=== PATIENT | male | born 1965 | race Caucasian/White ===

== ENCOUNTER → 2024-09-17 | Outpatient (CLI) | payer OTHER, SELFPAY ==
--- NOTE | 2024-09-16 09:00 | LES_PTH ---
PATIENT: AMARA HERNANDEZ LOC: [facility] U#:[id number] AGE/SX: 59/M ROOM: RE09/17/[address]: Dr. Nikhil Bond MD : 1965 BED: DIS: 09/17/2024 SPEC #: [id number] RECD: 09/16/24 17:12 STATUS: DILCIA ISABELLA #: [id number] MORENO: 09/16/24 09:[address]: Nikhil Bond DEPT: SURGICAL PATHOLOGY RECD BY: Franklyn Gray ENTERED: 09/19/24 09:42 SP TYPE: Lesion OTHR DR: No Primary Care Phys Tissues: A - Skin of back, NOS Procedures: Surgery Specimen Level IV HEADER OPERATION: Excision left back mole PRE-OP DIAGNOSIS: Left back mole TISSUE SUBMITTED: A- Left back lesion MICROSCOPIC DIAGNOSIS A. Back, left, lesion, mole, excision: * Seborrheic keratosis. MICROSCOPIC DESCRIPTION Slides are reviewed. GROSS DESCRIPTION A. Received in formalin labeled with the patient's name and date of . Designated as left back lesion is a 1.0 x 0.7 cm duong skin ellipse, devoid of orientation and excised to a maximum depth of 0.6 cm. Eccentrically on the epidermal surface is a 0.6 x 0.4 cm brown and granular lesion, located <0.1 cm from the peripheral edge. The resection margin is inked orange. Sectioning reveals duong-white fibrotic and focally gritty cut surfaces. Entirely submitted in 2 cassettes, to include the tips in cassette A1. OR 09/19/2024 CPT:11375
--- OUTSIDE RECORDS SUMMARY | 2024-09-17 08:58 | XMS RPT_ITS | CCD ---
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 Tejeda Attending Provider [phone] Allergies Allergy Classification Reported Allergen(s) Allergy Type Date of Onset Reaction(s) Facility (1 source) levoFLOXacin Drug Allergy 5 [facility] Repository (1 source) levoFLOXacin Drug Allergy 5 PT UNSURE OF REACTION [facility] Results Test Name Value Interpretation Reference Range Facil ity Quantiferon TB-Gold+on 03-11 QFT MITOGEN BIRGIT > 10.00 Normal . [facility] Comment on above: Performed By: #### L 3400.8000 #### [facility] [address] [place], [place], [id number] (192) QFT NIL VALUE 0 IU/mL Normal . [facility] Comment on above: Performed By: #### L 3400.8000 #### [facility] [address] [place], [address] QFT TB GOLD+ Comment Normal . [facility] Comment on above: Result Comment: Junaid tiFERON-TB Gold Plus is a qualitative indirect test for M tuberculosis infection (including disease) and is intended for use in conjunction with risk assessment, radiography, and other medical and diagnostic evaluations. The QuantiFERON-TB Gold Plus result is determined by subtracting the Nil value from either TB antigen (Ag) value. The Mitogen tube serves as a control for the test. Performed By: #### L 3400.8000 #### [facility] [address] [place], [address] QFT TB POS CRIT Negative Normal Negative [facility] Comment on above: Result Comment: No r esponse to M tuberculosis antigens detected. Infection with M tuberculosis is unlikely, but high risk individuals should be considered for additional testing (ATS/IDSA/CDC Clinical Practice Guidelines, 2017). The reference range is an Antigen minus Nil result of <0.35 IU/mL. The specimen received for QuantiFERON testing was incubated by the ordering institution. Specific procedures outlined in our Directory of Services and in the package insert for the QuantiFERON Gold (In Tube) test must be followed to enable for proper stimulation of cells for the production of interferon gamma. Chemiluminescence immunoassay methodology Performed at: [facility] [id number] [employer] Fire[employer] Helper: Rubin Brunner PhD, Phone: [phone] Performed By: #### L 3400.8000 #### [facility] [address] [place], [address] QFT TB1+ AG BIRGIT 0 IU/mL Normal . [facility] Comment on above: Performed By: #### L 3400.8000 #### [facility] [address] [place], [address] QFT TB2+ AG BIRGIT 0 IU/mL Normal . [facility] Comment on above: Performed By: #### L 3400.8000 #### [facility] [address] [place], [address] Mumps Antibody,IgGon 18-2 024 MUMPS Ab, IgG 54.6 AU/mL Normal Immune >10.9 [facility] Comment on above: Result Comment: Nega tive <9.0 Equivocal 9.0 - 10.9 Positive >10.9 A positive result generally indicates past exposure to Mumps virus or previous vaccination. Performed By: #### L 3100.3400, L3100.0539, L3400.1750, L509.4015 #### [facility] [address] [place], [place], [address] [facility] EMP Rubeola Titeron 12 RUBEOLA Ab, IgG > 300.0 Normal Immune >16.4 [facility] Comment on above: Result Comment: Nega tive <13.5 Equivocal 13.5 - 16.4 Positive >16.4 Presence of antibodies to Rubeola is presumptive evidence of immunity except when acute infection is suspected. Performed at: [address] [id number] [employer]per: Rubin Brunner PhD, Phone: [phone] Performed By: #### L 3100.3400, L3100.0539, L3400.1750, L509.4015 #### [facility] [address] [place], [place], [address] Hepatitis B Surf AB - EMPon 03-08-2024 HEP B Surf Ab Reactive Normal [facility] Comment on above: Result Comment: Non Reactive: Inconsistent with immunity less than <10 mIU/mL Reactive: Consistent with immunity greater than or equal to 10 mIU/mL Performed By: #### L 3100.3400, L3100.0539, L3400.1750, L509.4015 #### [facility] [address] [place], [place], [address] Rubella IgG [facility] EMPLOYEEon 05-09-2023 Rubella IgG Reactive Normal Nonreactive [facility] Comment on above: Result Comment: Anti body Results Interpretation of Immune Status Non Reactive Presumed Non-Immune Equivocal Equivocal Reactive Presumed Immune Performed By: #### L 3100.3400, L3100.0539, L3400.1750, L509.4015 #### [facility] [address] [place], [place], [address] Vital Signs Date Time Vital Sign Value Performing Clinician Amy carter 09-16-2024 08:47-0400 Body height 180.34 cm No Primary Care Physician [facility] 09-16-2024 08:47-0400 Body mass index (BMI) [Ratio] 23.1 kg/m2 No Primary Care Physician [facility] 09-16-2024 08:47-0400 Body weight 75.29 kg No Primary Care Physician [facility] 09-16-2024 08:47-0400 Diastolic blood pressure 75 mm[Hg] No Primary Care Physician [facility] 09-16-2024 08:47-0400 Heart rate 58 /min No Primary Care Physician [facility] 09-16-2024 08:47-0400 Respiratory rate 18 /min No Primary Care Physician [facility] 09-16-2024 08:47-0400 SaO2% (BldA) [Mass fraction] 97 % No Primary Care Physician [facility] 09-16-2024 08:47-0400 Systolic blood pressure 119 mm[Hg] No Primary Care Physician [facility] Encounters Encounter Date Encounter Type Care Provider Facility Start: 09-16-2024 End: 09-16-[address] Nikhil Bond MD -[facility] Work Phone: Start: 09-16-2024 End: 09-16-2024 ambulatory No Primary Care Physician [facility] Start: 03-08-2024 ambulatory Health Risk Assessment Facility:[facility] Immunizations Immunization Date Immunization Notes Care Provider Matt bojorquez 01-20-2024 influenza, seasonal, injectable, preservative free No Primary Care Physician [facility] 01-15-2023 Covid (Spikevax) No Primary Care Physician [facility] 01-08-2023 influenza, injectabl e, quadrivalent, preservative free No Primary Care Physician [facility] 02-05-2022 influenza, injectabl e, quadrivalent, preservative free No Primary Care Physician [facility] 01-23-2021 Covid (Moderna) No Primary C are Physician [facility] 12-26-2020 influenza, injectabl e, quadrivalent, preservative free No Primary Care Physician [facility] 04-17-2020 Covid (Moderna) No Primary C are Physician [facility] 03-20-2020 Covid (Moderna) No Primary C are Physician [facility] 01-09-2020 influenza, injectabl e, quadrivalent, preservative free No Primary Care Physician [facility] 02-14-2019 influenza, injectabl e, quadrivalent, preservative free No Primary Care Physician [facility] 01-04-2018 influenza, injectabl e, quadrivalent, preservative free No Primary Care Physician [facility] 01-14-2017 influenza, injectabl e, quadrivalent, preservative free No Primary Care Physician [facility] 01-07-2016 influenza, injectabl e, quadrivalent, preservative free No Primary Care Physician [facility] 02-19-2015 influenza, injectabl e, quadrivalent, preservative free No Primary Care Physician [facility] 12-21-2013 influenza, injectabl e, quadrivalent, preservative free No Primary Care Physician [facility] Payers Date Payer Category Payer Unknown [id number] 2024 Self-pay Unknown [id number] Unknown [id number] Unknown [id number] Unknown [id number] Social History Date Type [facility]ail [facility] Work Phone: Start: 1965 Sex Assigned At Male [facility] Evaluation note Note Date & Type Note Facility Evaluation note No assessment information availa ble [facility] Work Phone: Reason for referral (narrative) Note Date & Type Note Facility Reason for referral (narrative) No reason for referral information available [facility] Work Phone: Summary Purpose Family History No Family History Records Found Advance Directives No Advanced Directives Records Found Chief Complaint and Reason for Visit Chief Complaint Admit Date MOLE ON BACK September 16, 2024 8:18 am Additional Source Comments (unrecognized sect ion and content) No Status Records Found INFORMATION SOURCE (unrecogn ized section and content) DATE CREATED AUTHOR 09/16/2024 [facility] Care Teams (unrecognized sec tion and content) Team Status: Active Member Role/Relationship Status Dates No Primary Care Physician Family Provider Active No Primary Care Physician Primary Care Provider Active Team Status: Inactive Member Role/Relationship Status Dates No Primary Care Physician Primary Care Provider Active Start: September 16, 2024 End: September 16, 2024 No Primary Care Physician Referring Provider Active Start: September 16, 2024 End: September 16, 2024 Dr. Nikhil Bond MD Attending Provider Active Start: September 16, 2024 End: September 16, 2024 Goals (unrecognized section and content) Goals may be documented in a n alternate section FOR RECORDS PERTAINING TO PATIENTS WHO ARE OR HAVE BEEN ENROLLED IN A CHEMICAL DEPENDENCY/SUBSTANCEABUSE PROGRAM, SOME INFORMATION MAY BE OMITTED. This clinical summary was aggregated from multiple sources. Caution should be exercised in using it in the provision of clinical care. This summary normalizes information from multiple sources, and as a consequence, information in this document may materially change the coding, format and clinical context of patient data. In addition, data may be omitted in some cases. CLINICAL DECISIONS SHOULD BE BASED ON THE PRIMARY CLINICAL RECORDS. [facility] [facility]. provides no warranty or guarantee of the accuracy or completeness of information in this document.
== END | disposition home or self-care (01) ==
LOC: LABSPEC 08:54
PROVIDERS: Referring Provider Surgery Plastic and Reconstructive Surgery; Visit Provider Surgery Plastic and Reconstructive Surgery
DX: D22.9 Melanocytic nevi, unspecified (principal)
CPT/HCPCS: 88305

== ENCOUNTER → 2024-12-02 | Outpatient (CLI) | payer OTHER, SELFPAY ==
--- NOTE | 2024-12-02 09:38 | RAD_ITS ---
PROCEDURE: CHEST PA AND LATERAL 12/02/2024 REASON FOR EXAM: TRAMA L CHEST WALL TECHNIQUE: Procedure Code: RADCXR Modality: DX Procedure: CHEST PA AND LATERAL COMPARISON: None. RAD/Chest PA and Lateral IMPRESSION: No pneumothorax is seen. No definite pleural effusion is evident. Minimal discoid atelectasis is seen at the left lung base. No evidence of pulmonary edema. The cardiomediastinal silhouette is remarkable for a somewhat tortuous aorta. No evidence of cardiomegaly. Mild thoracic spine degenerative changes are seen. No fracture site is evident. If clinical concern persists, short-term follow-up imaging may be obtained to r ule out a currently occult fracture. Reading Location: [place] [address]
== END | disposition home or self-care (01) ==
PROVIDERS: Referring Provider Anesthesiology; Visit Provider Anesthesiology
DX: J98.11 Atelectasis (principal)
CPT/HCPCS: 71046

== ENCOUNTER → 2025-02-14 | Outpatient (CLI) | payer OTHER, SELFPAY ==
[2025-02-14 15:24] LABS: Hematocrit 42.8 % (40-54); Hemoglobin 14.0 g/dL (13.0-16.5); Mean Corp Hgb Conc 32.7 g/dL (32-36); Mean Corpuscular Volume 93.2 fL (80-94); Mean Platelet Vol. 11.3 fl (6.2-12.0); Platelet Count 206 K/mm3 (150-450); RBC Distribution Width CV 12.0 % (11.6-14.6); RBC Distribution Width SD 41.3 fl (35.1-43.9); Red Blood Count 4.59 M/mm3 (4.6-6.2); White Blood Count 6.0 K/mm3 (4.4-11.0)
[2025-02-14 16:34] LABS: Anion Gap 13 (5-15); BUN 18 mg/dL (4-19); BUN/Creat Ratio 19.6 RATIO (10-20); Calcium,Total 9.4 mg/dL (7.6-11.0); Carbon Dioxide 24.7 mmol/L (21.0-32.0); Chloride 104 mmol/L (98-108); Glucose 89 mg/dL (70-99); PSA,Total - Annual Screen 1.23 ng/mL (0.02-4.00); Potassium 4.2 mmol/L (3.3-5.1)
== END | disposition home or self-care (01) ==
LOC: MTLAB 11:22
PROVIDERS: Referring Provider Anesthesiology; Visit Provider Anesthesiology
DX: Z00.00 Encounter for general adult medical examination without abnormal findings (principal); Z80.42 Family history of malignant neoplasm of prostate
CPT/HCPCS: 36415; 80048; 84153; 84443; 85027; G0103